=== PATIENT | female | born 1990 | race Caucasian/White ===

== ENCOUNTER 2020-09-01 03:12 | Emergency (ER) | payer MEDICAID, OTHER ==
[~2020-09-01] VITALS: Ht 167.7 cm; Wt 72.5 kg
[2020-09-01 03:12] VITALS: BP 145/83
[2020-09-01] MEDS ORDERED: LIDOCAINE 1% INJ 20 ML 20 ML VIAL INJ ONE (03:15)
--- NOTE | 2020-09-01 03:23 | ED Integumentary General ---
General Stated Complaint: LEFT ARM LACERATION Source: patient Exam Limitations: no limitations History of Present Illness Date Seen by Provider: Sep 01, 2020 Time Seen by Provider: 03:09 Initial Comments The patient presents to the ER by private conveyance with chief complaint that she tripped and fell over a tovar's knife. She says they have been working around removing carpet and she fell there was a knife exposed on the floor. She denies being hurt anywhere else. She denies feeling unsafe at home. She says she had a tdap about one year ago when she was . She denies any numbness tingling or loss of range of motion to her left hand. Her lacerations on her left forearm. Allergies and Home Medications Allergies Coded Allergies: No Known Drug Allergies (Unverified , 09/01/20) Patient Home Medication List Home Medication List Reviewed: Yes Review of Systems Review of Systems Constitutional: No chills, No diaphoresis EENTM: No ear discharge, No ear pain Respiratory: No cough, No short of breath Cardiovascular: No chest pain, No edema Gastrointestinal: No abdominal pain, No nausea, No vomiting Genitourinary: No discharge, No dysuria Musculoskeletal: No back pain, No joint pain Skin: see HPI All Other Systems Reviewed Negative Unless Noted: Yes Past Yuemqxk-Pxaygi-Swaiku Hx Patient Social History Alcohol Use: Denies Use Recreational Drug Use: No Smoking Status: Current Everyday Smoker Type Used: Cigarettes Physical Exam Vital Signs Capillary Refill : General Appearance: WD/WN, mild distress HEENT: PERRL/EOMI, pharynx normal Neck: full range of motion, supple, normal inspection Cardiovascular: normal peripheral pulses, regular rate, rhythm Respiratory: no respiratory distress, no accessory muscle use Extremities: other (all 5 fingers flexion and wrist are intact.) Neurologic/Psychiatric: no motor/sensory deficits, alert, normal mood/affect, oriented x 3 Skin: normal color, warm/dry, other (curvilinear laceration into the subcutaneous fat on the anterior surface of the left forearm distally.) Procedures/Interventions Wound Location: Upper Extremities Other Wound Location Left Forearm Wound Length (cm): 6 Wound's Depth, Shape: linear, sub Q Wound Explored: no foreign body removed Irrigated w/ Saline (ccs): 300 Betadine Prep?: Yes (chlorhexidine) Anesthesia: 1% Lidocaine Volume Anesthetic (ccs): 4 Wound Debrided: minimal Suture Size: 4-0 Other Closure Supply: Wound Adhesive Number of Sutures: 8 Layer Closure?: 1 Sterile Dressing Applied?: Yes Progress Wound was thoroughly cleaned and explored. The fascial layer overlying the muscles and tendons was still intact. There is no loss of range of motion to the fingers or wrist. The wound was then thoroughly flushed first with chlorhexidine and sterile saline and then finally with another 100 cc of sterile saline. Skin was infiltrated with 1% lidocaine. Skin edges were reapproximated using 8 simple interrupted sutures. Patient tolerated procedure well. Dressed with triple antibiotic ointment, gauze. Progress/Results/Core Measures Results/Orders My Orders Orders - CALI SCHUSTER Lidocaine 1% Inj 20 Ml (Xylocaine 1% Inj (09/01/20 03:15) Departure Impression Primary Impression: Laceration Disposition: 01 HOME, SELF-CARE Condition: Improved Departure-Patient Inst. Decision time for Depature: 03:40 Patient Instructions: Laceration Repair With Stitches (DC) Add. Discharge Instructions: Keep the wound clean with regular soap and water. Return to the ER if you notice an extreme amount of redness, swelling going up your arm, fever or other worrisome symptoms such as discharge from the wound. If you have some bleeding you may apply direct pressure and elevate above the level of your heart for 20 minutes. Change the dressing daily. Change it more frequently for soiling. Amoxicillin one capsule 3 times a day for 5 days to prevent infection. Return to the ER or your primary care doctor in 10-14 days to have the sutures removed. Scripts Amoxicillin (Amoxicillin) 500 Mg Capsule 500 MG PO TID for 5 Days, #15 CAP 0 Refills Prov: CALI SCHUSTER 09/01/20 CALI SCHUSTER Sep 01, 2020 03:23
[2020-09-01] MEDS ORDERED: AMOX500C2 PO (03:43)
== END 2020-09-01 03:46 | disposition home or self-care (01) ==
LOC: ER FS 03:18
DX: S51.812A Laceration without foreign body of left forearm, initial encounter (principal); F17.210 Nicotine dependence, cigarettes, uncomplicated; W26.0XXA Contact with knife, initial encounter
CPT/HCPCS: 12032